=== PATIENT | male | born 1985 | race Caucasian/White ===

== ENCOUNTER 2019-03-15 14:49 | Emergency (ER) | payer MEDICAID ==
[~2019-03-15] VITALS: Ht 172.7 cm; Wt 81.8 kg
[2019-03-15] MEDS ORDERED: LIDOcaine 1% W/epiNEPHrine 1:200,000 10ml vial IJ ONE (15:15)
[2019-03-15 15:32] LABS: BASOPHILS # (AUTO) 0.1 X10'3 (0-0.2); BASOPHILS % (AUTO) 0.6 % (0-1); EOSINOPHILS # (AUTO) 0.3 X10'3 (0-0.9); EOSINOPHILS % (AUTO) 3.9 % (0-6); HEMATOCRIT 46.4 % (42.0-52.0); HEMOGLOBIN 16.3 g/dl (14.0-17.9); LYMPHOCYTES # (AUTO) 3.1 X10'3 (1.1-4.8); LYMPHOCYTES % (AUTO) 35.6 % (21-51); MEAN CORPUSCULAR HEMOGLOBIN 31.9 PG (27.0-31.0); MEAN CORPUSCULAR HGB CONC 35.1 g/dL (33.0-36.5); MEAN PLATELET VOLUME 9.1 FL (7.4-10.4); MONOCYTES # (AUTO) 0.4 X10'3 (0-0.9); MONOCYTES % (AUTO) 5.1 % (2-12); NEUTROPHILS # (AUTO) 4.8 X10'3 (1.8-7.7); NEUTROPHILS % (AUTO) 54.8 % (42-75); PLATELET COUNT 274 X10'3 (140-440); RED BLOOD COUNT 5.09 X10'6 (4.70-6.10); RED CELL DISTRIBUTION WIDTH 12.9 % (11.5-14.5); WHITE BLOOD COUNT 8.8 X10'3 (4.5-11.0)
[2019-03-15 15:42] LABS: PARTIAL THROMBOPLASTIN TIME 25 SECONDS (22-32)
[2019-03-15 15:44] LABS: ALANINE AMINOTRANSFERASE 19 U/L (12-78); ALBUMIN 3.9 G/DL (3.4-5.0); ALKALINE PHOSPHATASE 90 IU/L (46-116); ANION GAP 12 (8-16); ASPARTATE AMINO TRANSFERASE 8 U/L (10-37); BILIRUBIN,TOTAL 0.4 MG/DL (0.1-1.0); BLOOD UREA NITROGEN 16 MG/DL (7-18); BUN/CREATININE RATIO 16.3 (5.4-32.0); CALCIUM 8.2 MG/DL (8.5-10.1); CHLORIDE 104 MMOL/L (99-107); CREATININE 0.98 MG/DL (0.60-1.10); GLUCOSE 88 MG/DL (70-104); MAGNESIUM 2.2 MG/DL (1.5-2.4); POTASSIUM 3.4 MMOL/L (3.5-5.1); SODIUM 139 MMOL/L (135-145); TOTAL PROTEIN 7.8 G/DL (6.4-8.2); eGFR 88 ML/MIN
[2019-03-15] MEDS: LIDOcaine 1% w/EPI 1:200,000 injection 10mL vial IM ONE ×2 (15:53→15:59)
--- NOTE | 2019-03-15 15:53 | NUR ---
lidocaine not taken out, no lacerations seen, just bloody nose
--- NOTE | 2019-03-15 15:54 | NUR ---
pt was assisted to stand at bedside, stated he could not urinate, wanted to talk to a auto tire recapper first he said
[2019-03-15 16:18] VITALS: BP 108/57
== END 2019-03-15 16:21 ==
LOC: ER 14:50
DX: S00.83XA Contusion of other part of head, initial encounter (principal); R07.89 Other chest pain; F12.90 Cannabis use, unspecified, uncomplicated; F10.129 Alcohol abuse with intoxication, unspecified; Y04.2XXA Assault by strike against or bumped into by another person, initial encounter; Y93.89 Activity, other specified; Y92.89 Other specified places as the place of occurrence of the external cause; Y99.8 Other external cause status; Y90.0 Blood alcohol level of less than 20 mg/100 ml
CPT/HCPCS: 36415; 70450; 70486; 80053; 80320; 83735; 84484; 85025; 85610; 85730; 93005; 96372; 99284

== ENCOUNTER 2021-10-12 01:49 | Emergency (ER) | payer MEDICAID ==
[~2021-10-12] VITALS: Ht 172.7 cm; Wt 79.5 kg
[2021-10-12] MEDS ORDERED: LIDOcaine 1% W/epiNEPHrine 1:100,000 20ml vial SQ ONE (02:45)
[2021-10-12 03:44] VITALS: BP 131/86
== END 2021-10-12 03:49 ==
LOC: ER 01:49
DX: S31.114A Laceration without foreign body of abdominal wall, left lower quadrant without penetration into peritoneal cavity, initial encounter (principal); S41.031A Puncture wound without foreign body of right shoulder, initial encounter; F12.90 Cannabis use, unspecified, uncomplicated; F15.90 Other stimulant use, unspecified, uncomplicated; F10.10 Alcohol abuse, uncomplicated; Y90.9 Presence of alcohol in blood, level not specified; W54.0XXA Bitten by dog, initial encounter; Y93.89 Activity, other specified; Y92.89 Other specified places as the place of occurrence of the external cause; Y99.8 Other external cause status
CPT/HCPCS: 12034; 99284; J7030; A6258; A6449

== ENCOUNTER 2022-02-01 09:54 | Emergency (ER) | payer MEDICAID ==
[~2022-02-01] VITALS: Ht 172.7 cm; Wt 78.9 kg
[2022-02-01 10:14] VITALS: BP 134/94
--- NOTE | 2022-02-01 10:43 | NUR ---
[facility] CALLED AND WILL BE SENDING OUT AN OFFICER TO FILE A REPORT.
[2022-02-01] MEDS ORDERED: HYDROcodone/acetaminophen 5mg/325mg tablet PO ONE (11:45)
--- NOTE | 2022-02-01 12:06 | NUR ---
[facility] AT BEDSIDE
[2022-02-01] MEDS ORDERED: amox tr/potassium clavulanate 875/125mg TAB PO ONE (12:25)
[2022-02-01] MEDS ORDERED: HYDR-3965 PO (12:55)
[2022-02-01] MEDS ORDERED: AMOX-117 PO (12:55)
== END 2022-02-01 13:09 | disposition home or self-care (01) ==
LOC: ER 09:54
DX: S02.2XXA Fracture of nasal bones, initial encounter for closed fracture (principal); S00.31XA Abrasion of nose, initial encounter; M54.50 Low back pain, unspecified; R51.9 Headache, unspecified; F12.90 Cannabis use, unspecified, uncomplicated; F15.90 Other stimulant use, unspecified, uncomplicated; F19.90 Other psychoactive substance use, unspecified, uncomplicated; Z72.89 Other problems related to lifestyle; Z59.00 Homelessness unspecified; Z79.2 Long term (current) use of antibiotics; Z79.899 Other long term (current) drug therapy; Y08.89XA Assault by other specified means, initial encounter; Y93.89 Activity, other specified; Y92.89 Other specified places as the place of occurrence of the external cause; Y99.8 Other external cause status
CPT/HCPCS: 70450; 70486; 99284

== ENCOUNTER 2022-03-12 18:22 | Emergency (ER) | payer MEDICAID ==
[~2022-03-12] VITALS: Ht 172.7 cm; Wt 72.0 kg
[2022-03-12 18:34] VITALS: BP 138/99
--- NOTE | 2022-03-12 18:36 | NUR ---
pt seen and dc'd by provider
== END 2022-03-13 02:21 | disposition home or self-care (01) ==
LOC: ER 18:23
DX: V87.7XXA Person injured in collision between other specified motor vehicles (traffic), initial encounter; Y93.89 Activity, other specified; Y92.89 Other specified places as the place of occurrence of the external cause; Y99.8 Other external cause status
CPT/HCPCS: 99283

== ENCOUNTER 2022-06-10 15:02 | Emergency (ER) | payer MEDICAID ==
[~2022-06-10] VITALS: Ht 172.7 cm; Wt 72.7 kg
[2022-06-10] MEDS ORDERED: iohexol 350MG/ML 100ml bottle IV ONE (15:10)
[2022-06-10 15:52] VITALS: BP 135/87
== END 2022-06-10 16:11 ==
LOC: ER 15:03
DX: S00.01XA Abrasion of scalp, initial encounter (principal); F12.10 Cannabis abuse, uncomplicated; F15.10 Other stimulant abuse, uncomplicated; Z59.00 Homelessness unspecified; Y04.8XXA Assault by other bodily force, initial encounter; Y93.89 Activity, other specified; Y92.89 Other specified places as the place of occurrence of the external cause; Y99.8 Other external cause status
CPT/HCPCS: 70450; 70496; 70498; 99285; J3490; Q9967